=== PATIENT | female | born 1935 | race Asian ===

== ENCOUNTER 2016-09-21 18:23 | Emergency (ER) | payer OTHER ==
[~2016-09-21] VITALS: Ht 147.3 cm; Wt 51.7 kg
[2016-09-21 22:12] VITALS: BP 144/72
== END 2016-09-21 22:12 | disposition home or self-care (01) ==
LOC: ED 18:23
DX: S60.312A Abrasion of left thumb, initial encounter (principal); W54.0XXA Bitten by dog, initial encounter; Y93.89 Activity, other specified; Y92.89 Other specified places as the place of occurrence of the external cause; Y99.8 Other external cause status; E11.9 Type 2 diabetes mellitus without complications; I10 Essential (primary) hypertension
CPT/HCPCS: 90715